=== PATIENT | female | born 1995 | race Caucasian/White ===

== ENCOUNTER 2023-03-18 08:23 | Emergency (ER) | payer OTHER, SELFPAY ==
[2023-03-18 08:27] VITALS: BP 154/94; PULSE 79; RESP 18; TEMP 36.9; O2SAT 100; BMI 24.3
[2023-03-18 08:38] VITALS: BP 153/97; PULSE 84; O2SAT 100
--- NOTE | 2023-03-18 08:54 | ED_ITS ---
HPI - Skin/Abscess/Foreign Bdy General Chief complaint: Skin/Abscess/Foreign Body Stated complaint: inhaled a grain of rice Time Seen by Provider: 03/18/23 08:43 Source: patient Mode of arrival: Ambulatory Limitations: no limitations History of Present Illness HPI narrative: Patient is a healthy 27-year-old female who presents with chest and throat discomfort. She reports that about a week ago she was eating sushi when she choked and think she may have inhaled a little bit of rice. She says since then she feels like she is having some discomfort she denies fever chills or productive cough. No abdominal pain nausea or vomiting. No difficulty breathing. She thinks that it is still bothering her. Related Data Allergies Allergy/AdvReac Type Severity Reaction Status Date / Time No Known Drug Allergies Allergy Verified 03/18/23 09:38 Review of Systems Review of Systems ROS Unobtainable: All systems reviewed & are unremarkable except as noted in HPI and below Patient History Social History Smoking Status: Never smoker Smoking Status: Never smoker alcohol intake frequency: a few times a week Substance Use Type: does not use Exam Initial Vital Signs Initial Vital Signs: Vital Signs Temperature 98.5 F 03/18/23 08:27 Pulse Rate 79 03/18/23 08:27 Respiratory Rate 18 03/18/23 08:27 Blood Pressure 154/94 H 03/18/23 08:27 Pulse Oximetry 100 03/18/23 08:27 Oxygen Delivery Method Room Air 03/18/23 08:27 GENERAL: Alert pleasant well-appearing 27-year-old female and in no acute distress. HEENT: Head atraumatic,EOMI, pupils reactive, face symmetric, moist mucous membranes CARDIOVASCULAR: Regular rate and rhythm without murmurs, rubs or gallops. RESPIRATORY: Breath sounds equal bilaterally, no wheezes rales or rhonchi. ABDOMEN: Soft, nontender. Normoactive bowel sounds all 4 quadrants. No guarding or rebound. EXTREMITIES: Normal range of motion, no clubbing or edema. Neurovascularly intact NEUROLOGICAL: Alert and oriented x4. SKIN: Warm, dry, no laceration, no petechiae, no rashes or lesions. Course Orders Ordered: ED Orders 03/18/23 08:50 CBC Auto Diff [Complete Blood Count AUTO DIFF] Stat CMP [Comprehensive Metabolic Panel] Stat 03/18/23 08:58 Chest [XR chest 2V] Stat Discontinued Medications Albuterol (Albuterol 2.5 Mg/3 Ml Neb (Adult)) 2.5 mg INH Q20M ANGY Stop: 03/18/23 09:41 Last Admin: 03/18/23 10:00 Dose: Not Given Documented By: Admin: 03/18/23 09:58 Dose: 2.5 mg Documented By: Admin: 03/18/23 09:08 Dose: 2.5 mg Documented By: DARREL Ketorolac Tromethamine (Ketorolac 30 Mg/Ml Vial) 15 mg IV NOW ONE Stop: 03/18/23 08:59 Last Admin: 03/18/23 09:08 Dose: 15 mg Documented By: DARREL Vital Signs Vital signs: Vital Signs - 8 hr 03/18/23 08:27 03/18/23 08:38 03/18/23 09:15 Temperature 98.5 F Pulse Rate 79 84 60 Respiratory Rate 18 16 Blood Pressure 154/94 H 153/97 H Pulse Oximetry 100 100 100 Oxygen Delivery Method Room Air Room Air Room Air 03/18/23 10:12 Temperature Pulse Rate 71 Respiratory Rate 18 Blood Pressure 138/82 Pulse Oximetry 100 Oxygen Delivery Method Room Air MDM - Skin/Abscess/Foreign Bdy Lab Data 03/18/23 08:50 03/18/23 08:50 Labs: Lab Results 03/18/23 03/18/23 Range/Units 08:50 08:50 WBC 6.7 (4.5-11.0) X10^3/uL RBC 4.62 (4.0-5.2) X10^6/uL Hgb 14.1 (12.0-16.0) g/dL Hct 41.0 (36-46) % MCV 88.8 (80-100) fL MCH 30.4 (26-34) PG MCHC 34.2 (30-36) % RDW 12.9 (11.6-14.8) % Plt Count 224 (150-400) X10^3/uL Neut % (Auto) 63.7 (50-75) % Lymph % (Auto) 27.5 (25-40) % [place] % (Auto) 6.9 (3-14) % Eos % (Auto) 1.1 L (2-4) % Baso % (Auto) 0.8 (0-2) % Neut # (Auto) 4300 (4723-2586) /uL Lymph # (Auto) 1800 (2267-7843) /uL [place] # (Auto) 500 (0-900) /uL Eos # (Auto) 100 (0-450) /uL Baso # (Auto) 100 (0-100) /uL Sodium 135 L (137-145) mmol/L Potassium 4.1 (3.4-5.1) mmol/L Chloride 103 (98-107) mmol/L Carbon Dioxide 21 L (22-32) mmol/L BUN 11 (7-17) mg/dL Creatinine 0.77 (0.52-1.04) mg/dL Estimated GFR > 60 (>60) mL/min BUN/Creatinine Ratio 14.3 (6-22) Glucose 89 (70-100) mg/dL Calcium 9.1 (8.4-10.2) mg/dL Total Bilirubin 0.6 (0.2-1.3) mg/dL AST 26 (14-36) IU/L ALT 15 (<35) IU/L Alkaline Phosphatase 37 L (38-126) U/L Total Protein 7.9 (6.3-8.2) g/dL Albumin 4.6 (3.5-5.0) g/dL Globulin 3.3 (1.7-4.1) g/dL Albumin/Globulin Ratio 1.4 (1.0-2.8) Imaging Data Chest x-ray: Radiologist's Impression: PROCEDURE:? XR CHEST 2V ? INDICATIONS:? chest pain after inhaled food, rice inhaled ? TECHNIQUE:? 2 views of the chest were acquired.? ? COMPARISON:? None. ? FINDINGS:? ? Surgical changes and devices:? None.? ? Lungs and pleura:? Lungs are clear.? No pleural effusions or pneumothorax.? ? Mediastinum:? Mediastinal contours are normal.? Heart size is normal.? ? Bones and chest wall:? No suspicious bony abnormalities.? Soft tissues appear unremarkable.? ? IMPRESSION:? No acute radiographic abnormality.? No radiopaque foreign body. ? ? Dictated by: Bert Farris M.D. on 03/18/2023 at 9:45 ? ? Approved by: Bert Farris M.D. on 03/18/2023 at 9:46 ? MDM Narrative Medical decision making narrative: Patient 27-year-old female who presents with choking on rice almost a week ago. There is no evidence pneumonia. She is no airway compromise she is no difficulty swallowing. Blood work is overall reassuring. Chest x-ray does not show any pneumomediastinum or pneumonia or foreign body. She is given Toradol and albuterol. Minimal improvement. At this time need for any further workup or evaluation. Discharge Plan Departure Patient Disposition: Home Clinical Impression: Aspiration into airway Instructions: DI for Aspiration Pneumonia Activity Restrictions/Additional Instructions: *You have been diagnosed with aspiration *What to do: At this time there is absolutely no evidence of aspiration pneumonia. Blood work is reassuring. Likely feeling some discomfort still. Hopefully this gets better for you. *Continue to take medications as directed Tylenol Motrin as directed if needed for pain *Follow up with your primary care provider in 2-3 days or call [phone] *Return to ER if you should have increasing shortness of breath fever chills or any new, worsening or concerning symptoms Referrals: Pranay,, [Primary Care Provider] - Stand Alone Forms: Patient Portal/API
--- NOTE | 2023-03-18 08:58 | DI.RAD.S_ITS ---
PROCEDURE: XR CHEST 2V INDICATIONS: chest pain after inhaled food, rice inhaled TECHNIQUE: 2 views of the chest were acquired. COMPARISON: None. FINDINGS: Surgical changes and devices: None. Lungs and pleura: Lungs are clear. No pleural effusions or pneumothorax. Mediastinum: Mediastinal contours are normal. Heart size is normal. Bones and chest wall: No suspicious bony abnormalities. Soft tissues appear unremarkable. IMPRESSION: No acute radiographic abnormality. No radiopaque foreign body. Dictated by: Bert Farris M.D. on 03/18/2023 at 9:45 Approved by: Bert Farris M.D. on 03/18/2023 at 9:46
[2023-03-18] MEDS: ALBUTEROL 2.5 MG/3 ML NEB (ADULT) INH ×2 (09:08→09:58)
[2023-03-18] MEDS: KETOROLAC 30 MG/ML VIAL 15 MG IV (09:08)
[2023-03-18 09:09] LABS: Add Manual Diff / Slide Review NO; Basophils Absolute Auto 100 /uL (0-100); Basophils Percent Auto 0.8 % (0-2); Eosinophils Absolute Auto 100 /uL (0-450); Eosinophils Percent Auto 1.1 % (2-4); Hemoglobin 14.1 g/dL (12.0-16.0); Lymphocytes Absolute Auto 1800 /uL (1100-4500); Lymphocytes Percent Auto 27.5 % (25-40); Mean Corpuscular HGB Conc 34.2 % (30-36); Mean Corpuscular Hemoglobin 30.4 PG (26-34); Mean Corpuscular Volume 88.8 fL (80-100); Monocytes Absolute Auto 500 /uL (0-900); Monocytes Percent Auto 6.9 % (3-14); Neutrophils Absolute Auto 4300 /uL (1500-7000); Neutrophils Percent Auto 63.7 % (50-75); Platelet Count 224 X10^3/uL (150-400); Red Blood Cell Count 4.62 X10^6/uL (4.0-5.2); Red Cell Distribution Width 12.9 % (11.6-14.8); White Blood Cell Count 6.7 X10^3/uL (4.5-11.0)
[2023-03-18 09:15] VITALS: PULSE 60; RESP 16; O2SAT 100
[2023-03-18 09:44] LABS: Alanine Aminotransferase 15 IU/L (<35); Albumin 4.6 g/dL (3.5-5.0); Albumin Globulin Ratio 1.4 (1.0-2.8); Alkaline Phosphatase 37 U/L (38-126); Aspartate Aminotransferase 26 IU/L (14-36); BUN Creatinine Ratio 14.3 (6-22); Bilirubin Total 0.6 mg/dL (0.2-1.3); Blood Urea Nitrogen 11 mg/dL (7-17); Calcium 9.1 mg/dL (8.4-10.2); Carbon Dioxide 21 mmol/L (22-32); Chloride 103 mmol/L (98-107); Estimated Glomerular Filt Rate > 60 mL/min (>60); Globulin 3.3 g/dL (1.7-4.1); Glucose 89 mg/dL (70-100); HEMOLYSIS 38 (0-50); Potassium 4.1 mmol/L (3.4-5.1); Sodium 135 mmol/L (137-145); Total Protein 7.9 g/dL (6.3-8.2)
[2023-03-18 10:12] VITALS: BP 138/82; PULSE 71; RESP 18; O2SAT 100
== END 2023-03-18 10:12 | disposition home or self-care (01) ==
PROVIDERS: Emergency Provider Emergency Medicine
DX: T17.928A Food in respiratory tract, part unspecified causing other injury, initial encounter (principal)
CPT/HCPCS: 71046; 80053; 85025; 94640; 96374; 99284; J1885; J7613